=== PATIENT | female | born 1995 | race Caucasian/White ===

== ENCOUNTER 2016-12-08 09:22 | Inpatient (IN) | payer MEDICAID ==
[~2016-12-08] VITALS: Ht 167.6 cm; Wt 65.5 kg
[2016-12-08 23:43] VITALS: Ht 167.6 cm; Wt 65.5 kg
[2016-12-09] MEDS ORDERED: ZITHROMAX250 MG PO (14:13)
[2016-12-09] MEDS ORDERED: PROAIR HFA8.5 GM INH (14:13)
[2016-12-09 14:28] VITALS: BP 124/80
== END 2016-12-09 15:28 | disposition home or self-care (01) | DRG 918 ==
LOC: D.ER 09:22 → EDBD 09:22 → D.ICU 11:11
PROVIDERS: ADMIT Family Medicine
DX: T39.1X2A Poisoning by 4-Aminophenol derivatives, intentional self-harm, initial encounter (principal); F14.10 Cocaine abuse, uncomplicated; F60.3 Borderline personality disorder; J20.9 Acute bronchitis, unspecified